=== PATIENT | female | born 1995 | race Caucasian/White ===

== ENCOUNTER → 2017-08-27 | Outpatient (CLI) | payer OTHER ==
[~2017-08-27] VITALS: Ht 162.6 cm; Wt 112.0 kg
[~2017-08-27] MED LIST: AUGMENTIN875 MG PO; DICLEGIS DR 101 EACH PO; ENDOCET 5-3251 EACH PO; FERROUS SULFAT325 MG PO; FLINTSTONES GU1 EACH PO; IBUPROFEN800 MG PO; MOTRIN800 MG PO; PERCOCET 10/1 TABLET PO; PRENATAL TABLE1 EAC3 PO
[2017-08-27 08:22] VITALS: BP 132/68
== END | disposition home or self-care (01) ==
LOC: IVINF 08:00
DX: Z31.82 Encounter for Rh incompatibility status (principal); Z3A.28 28 weeks gestation of pregnancy
CPT/HCPCS: 96372; J2790

== ENCOUNTER 2017-11-23 06:59 | Inpatient (IN) | payer OTHER ==
[2017-11-23] VITALS (30 sets, daily range): BP systolic 107–143; BP diastolic 56–84
[~2017-11-23] VITALS: Ht 160 cm; Wt 121.0 kg
[2017-11-23 08:45] LABS: BASOPHIL (%) 0.1 % (0-1); EOSINOPHIL (%) 0.6 % (0-5); EOSINOPHIL COUNT 0.1 K/uL (0-0.3); HEMATOCRIT 34.6 % (36.0-46.0); HEMOGLOBIN 11.2 G/DL (11.9-15.5); IMMATURE GRANULOCYTE (%) 0.2 % (0.0-0.7); LYMPHOCYTE (%) 19.9 % (15-42); LYMPHOCYTE COUNT 1.7 K/uL (1.0-2.8); MCH 29.9 PG (29.0-34.0); MCHC 32.4 G/DL (30.0-36.0); MCV 92.5 FL (83-99); MONOCYTE (%) 7.8 % (3-12); MONOCYTE COUNT 0.7 K/uL (0-0.8); NEUTROPHIL (%) 71.4 % (45-76); NEUTROPHIL COUNT 5.9 K/uL (1.8-6.4); PLATELET COUNT 230 K/uL (156-360); RBC DIS.WIDTH-CV 14.4 % (11.8-14.6); RBC DIS.WIDTH-SD 48.1 % (39-53); RED BLOOD COUNT 3.74 M/uL (3.80-5.20); WHITE BLOOD COUNT 8.3 K/uL (4.1-10.2)
[2017-11-23] MEDS ORDERED: IBUPROFEN800 MG PO (20:25)
[2017-11-24 07:50] VITALS: BP 136/68
[2017-11-24 14:46] VITALS: BP 107/68
[2017-11-24 22:25] VITALS: BP 114/57
== END 2017-11-25 12:15 | disposition home or self-care (01) | DRG 775 ==
LOC: LDRP-OP 06:59 → 2WEST 07:00 → LDRP-OP 14:25 → 2WEST 20:09
PROVIDERS: Obstetrics & Gynecology Gynecology
PROC: 3E0R3BZ Introduction of Anesthetic Agent into Spinal Canal, Percutaneous Approach (ICD-10-PCS; principal; 2017-11-23)
PROC: 10907ZC Drainage of Amniotic Fluid, Therapeutic from Products of Conception, Via Natural or Artificial Opening (ICD-10-PCS; principal; 2017-11-23)
PROC: 10E0XZZ Delivery of Products of Conception, External Approach (ICD-10-PCS; principal; 2017-11-23)
PROC: 00HU33Z Insertion of Infusion Device into Spinal Canal, Percutaneous Approach (ICD-10-PCS; principal; 2017-11-23)
DX: O48.0 Post-term pregnancy (principal); O69.81X0 Labor and delivery complicated by cord around neck, without compression, not applicable or unspecified; O99.02 Anemia complicating childbirth; D50.9 Iron deficiency anemia, unspecified; O99.214 Obesity complicating childbirth; E66.9 Obesity, unspecified; Z68.30 Body mass index [BMI] 30.0-30.9, adult; Z3A.41 41 weeks gestation of pregnancy; O99.824 Streptococcus B carrier state complicating childbirth; Z37.0 Single live birth; Z80.3 Family history of malignant neoplasm of breast; Z83.3 Family history of diabetes mellitus; Z82.49 Family history of ischemic heart disease and other diseases of the circulatory system
CPT/HCPCS: 83030; 85025; 86850; 86870; 86900; 86901; 86905; C1755; J2540; J2790; J3010; J7120